=== PATIENT | female | born 1985 | race Caucasian/White ===

== ENCOUNTER 2016-10-16 03:29 | Emergency (ER) | payer OTHER ==
[~2016-10-16] VITALS: Ht 160 cm; Wt 103.3 kg
[~2016-10-16 03:29] MED LIST: AMOXICILLIN 50500 MG PO; AMOXICILLIN 8751 TAB PO; LORTAB 5/500 501 TAB PO; MVI; NAPROSYN PO; NAPROSYN500 MG PO; NO HOME MEDICATIONS; NORCO 325 MG-51 TAB PO; NORCO 325 MG-7.1 TAB PO; PERCOCET 325 MG1 TA2 PO; PHENERGAN 25 TA25 MG PO
[2016-10-16 03:32] VITALS: TEMP 98.5
[2016-10-16] MEDS ORDERED: CARAFATE 1GM1 G PO (04:41)
[2016-10-16 05:12] VITALS: BP 132/91; PULSE 80
== END 2016-10-16 05:16 | disposition home or self-care (01) ==
LOC: COL.ER 03:29
DX: K29.70 Gastritis, unspecified, without bleeding (principal); R03.0 Elevated blood-pressure reading, without diagnosis of hypertension

== ENCOUNTER 2020-05-16 09:48 | Emergency (ER) | payer BC ==
[~2020-05-16] VITALS: Ht 162.6 cm; Wt 113.6 kg
[~2020-05-16 09:48] MED LIST changes: +CARAFATE 1GM1 G PO
[2020-05-16 09:53] VITALS: BP 121/93; TEMP 98.1
[2020-05-16 11:39] VITALS: PULSE 85
== END 2020-05-16 11:35 | disposition home or self-care (01) ==
LOC: COL.ER 09:48
DX: S83.412A Sprain of medial collateral ligament of left knee, initial encounter (principal); X50.1XXA Overexertion from prolonged static or awkward postures, initial encounter; Y93.A1 Activity, exercise machines primarily for cardiorespiratory conditioning; Y92.009 Unspecified place in unspecified non-institutional (private) residence as the place of occurrence of the external cause